=== PATIENT | male | born 1995 | race Caucasian/White ===

== ENCOUNTER 2023-07-14 19:08 | Emergency (ER) | payer OTHER, BC, SELFPAY ==
--- NOTE | 2023-07-14 19:11 | ED.WOUNDLAC ---
HPI - Wound/Laceration General Chief Complaint: Wound/Laceration Stated Complaint: lt hand laceration Time Seen by Provider: 07/14/23 19:10 Source: patient Mode of arrival: ambulatory Limitations: no limitations History of Present Illness HPI narrative: Balbir is a 28-year-old male patient presenting to the clinic today with complaints a left hand-palm- base of thumb laceration. He reports he was cutting a a bottle soap open with a razor blade and cut his hand. States that his tetanus is not up-to-date. Bleeding is controlled. Related Data Home Medications Medication Instructions Recorded Confirmed venlafaxine 150 mg 150 mg PO DAILY 07/14/23 07/14/23 capsule,extended release 24 hr Allergies Allergy/AdvReac Type Severity Reaction Status Date / Time No Known Allergies Allergy Verified 07/14/23 19:29 Review of Systems Review of Systems: Pertinent positives per HPI. Patient denies any fever, chills, rash, headache, visual changes, dizziness, cough, runny nose, sore throat, shortness of breath, chest pain, palpitations, nausea, vomiting, diarrhea, constipation, abdominal pain, or any urinary issues. PMFSH Comments At the time of my signature, I reviewed and agree with the nursing past medical, surgical, social, and family history. There is no relevant family history pertinent to the patient complaint. Exam Narrative: General: Well-developed, well nourished, in no apparent distress Head: Normocephalic, atraumatic. Cardio: Regular rate and rhythm, s1 and s2 normal, no murmur appreciated. Resp: Clear to auscultation bilaterally, no rhonchi, rales, wheezing or rubs. Integumentary: [place], warm, and dry, 1 cm gaping laceration to the palm of the right hand at the base of the thumb. Course Course Emergency Course: Portions of this record may have been created with voice recognition software. Level of Care: Express Care Visit Vital Signs Vital signs: Vital Signs Temperature 36.3 C L 07/14/23 19:21 Pulse Rate 79 07/14/23 19:21 Respiratory Rate 16 07/14/23 19:21 Blood Pressure 127/77 07/14/23 19:21 Pulse Oximetry 99 07/14/23 19:21 Oxygen Delivery Room Air 07/14/23 19:21 Temperature 36.3 C L 07/14/23 19:21 Pulse Rate 79 07/14/23 19:21 Respiratory Rate 16 07/14/23 19:21 Blood Pressure 127/77 07/14/23 19:21 Pulse Oximetry 99 07/14/23 19:21 Oxygen Delivery Room Air 07/14/23 19:21 Vital signs reviewed Procedures Laceration Laceration 1: Date: 07/14/23 Site: hand Side (If applicable): right Size (cm): 1 Description: linear Depth: simple, single layer Local Anesthetic: lidocaine 1% Amount of anesthesia used (mL): 1 Pre-repair: wound explored and irrigated ====== Skin Level ====== Skin layer closed with: nylon Size (cm): 5-0 Number of sutures: 2 Technique: simple, interrupted ====== Subcutaneous Layer ====== ====== Muscle Layer ====== ====== Tendon Layer ====== Dressing: Verbal consent obtained for laceration repair. Risk and benefits explained and patient voiced understanding. Area was cleansed with antiseptic wound wash and a 27 gauge needle was then used to instill 1 ml of 1% lidocaine without epi into the wound edges. Area was prepped and draped using sterile technique. A 5-0 suture on a p needle was used to place (2) interrupted sutures bringing the wound edges together- well approximated. Patient tolerated procedure well. Sterile dressing applied. MDM - Wound/Laceration MDM Narrative Medical decision making narrative: At the time of visit patient is resting comfortably on the exam table. Patient appears to be nontoxic. Procedures: Laceration repair was performed-2 interrupted sutures were placed bringing wound edges close together well approximated. Patient tolerated well Plan: Patient had laceration repair in the clinic today.
[2023-07-14 19:21] VITALS: BP 127/77; PULSE 79; RESP 16; TEMP 36.3; O2SAT 99
[2023-07-14] MEDS: TETANUS,DIPHTHERIA,AC PERTUSSIS ADULT (0.5 ML) BOOSTRIX IM (19:30)
== END 2023-07-14 19:45 | disposition home or self-care (01) ==
LOC: EXPTROY 19:17
PROVIDERS: Emergency Provider Nurse Practitioner Family; PCP Family Medicine
DX: S61.411A Laceration without foreign body of right hand, initial encounter (principal); W26.8XXA Contact with other sharp object(s), not elsewhere classified, initial encounter; Z23 Encounter for immunization; F41.9 Anxiety disorder, unspecified
CPT/HCPCS: 12001; 90471; 90715; 99202; G0463